=== PATIENT | male | born 1960 | race Caucasian/White ===

== ENCOUNTER 2016-08-20 17:21 | Inpatient (IN) | payer MEDICARE, MEDICAID ==
[2016-08-20] MEDS ORDERED: Sodium Chloride 0.9% 10 ML Syringe FLUSH PRN (18:11)
[2016-08-20] MEDS: Sodium Chloride 0.9% 1,000 ML IV SCH (18:57)
[2016-08-20] MEDS ORDERED: cefTRIAXone 1 GM in Sodium Chloride 0.9% 50 ML IV SCH ×2 (19:00→21:00)
[2016-08-20] MEDS ORDERED: Azithromycin 500 MG AdvVial IV ONE (19:56)
[2016-08-20] MEDS: Azithromycin 500 MG in Sodium Chloride 0.9% 250 ML IV SCH (20:09)
[2016-08-20] MEDS ORDERED: Cholestyramine/Sucrose Powder 4 GM Packet PO SCH (21:00)
[2016-08-20] MEDS: Albuterol 0.083% 2.5 MG/3 ML Neb Soln NEB SCH (21:39)
[2016-08-21] MEDS: Ibuprofen 800 MG Tab PO PRN (00:30)
[2016-08-21] MEDS: Sodium Chloride 0.9% 1,000 ML IV SCH ×2 (03:50→12:30)
[2016-08-21] MEDS: Albuterol 0.083% 2.5 MG/3 ML Neb Soln NEB SCH ×4 (07:31→20:09)
[2016-08-21] MEDS ORDERED: Citalopram 20 MG Tab PO SCH (09:00)
[2016-08-21] MEDS ORDERED: Olmesartan 20 MG Tab PO SCH (09:00)
[2016-08-21] MEDS ORDERED: prednisoLONE Acetate 1% Ophth Susp 5 ML Bottle EYEBOTH SCH (09:00)
--- NOTE | 2016-08-21 14:47 | PN ---
DATE SEEN: 08/21/2016 SUBJECTIVE: Seng is seen today for followup of his bibasilar pneumonia. Actually doing fairly well. His saturations have been stable on 2 L at 91-92% and he is tolerating his respiratory treatments quite well. He has had minimal nonproductive cough. His fever went to 99.2, but otherwise he has been stable. His appetite was good this morning. He denies any other complaints or concerns. OBJECTIVE: GENERAL: He appears to be comfortable, sitting in the chair, in no acute distress. VITAL SIGNS: Afebrile today at 97.0, blood pressure 117/79, pulse is 75 and regular, respirations are 20, and O2 saturation on 2 L is 93%. HEENT: Otherwise unchanged. There is no jugular venous distention. CHEST: Revealed bibasilar crackles, but the patient takes a poor breath. CARDIOVASCULAR: Revealed a normal S1 and S2 without murmur, rub, or gallop. ABDOMEN: Unremarkable except for some obesity and healed incisional scars. EXTREMITIES: Without clubbing or edema. LABORATORY DATA: Thus far, blood cultures show no growth. IMPRESSION: Bibasilar pneumonia with hypoxemia; history of [id number]-mufezuaq intellectual disability; hypertension, under good control; and history of anxiety. PLAN: At this point, no changes will be made. Continue ceftriaxone and azithromycin and await the results of his cultures. Continue the nebulizer treatments and we will follow from there. /[id number] [id number] /BELEM
[2016-08-21] MEDS: Citalopram 10 MG Tab PO SCH (17:46)
[2016-08-21] MEDS: Azithromycin 500 MG in Sodium Chloride 0.9% 250 ML IV SCH (18:06)
[2016-08-21] MEDS: Olmesartan 20 MG Tab PO SCH (20:09)
[2016-08-21] MEDS: cefTRIAXone 1 GM in Sodium Chloride 0.9% 50 ML IV SCH (20:18)
--- NOTE | 2016-08-21 23:58 | HP ---
ADMISSION DATE: 08/20/2016 CHIEF COMPLAINT: Increased cough, fever, and lethargy. HISTORY OF PRESENT ILLNESS: This patient is a 56-year-old male, who is supervised [facility] with history of moderate intellectual disabilities, intermittent fecal incontinence, generalized anxiety disorder and borderline hypertension, who was admitted after being seen in the clinic with the above chief complaint. The patient began feeling ill yesterday, they have noticed a cough and low-grade fever. He was seen in the walk-in clinic, they felt he had "illness that is going around" and discharged him home. Throughout the night his cough increased and his fever increased. He became more congested, lethargic, and he was brought to the clinic for evaluation. Chest x-ray shows significant bibasilar pneumonia right greater than left and his O2 saturations were on room air were 82 to 85%. Because of that the fact that he lives in his own apartment supervised by the [facility], they were concerned that he would not do well. The hospitalization was recommended. He was therefore admitted. They have noticed a cough, but it seems to be nonproductive. He has had a fever in the 99 to 100 range. No active chills have been noted. He has had no hemoptysis. Seng rarely says anything. He will nod his head yes and no to answer questions. He at this time denies pain. He has had no nausea or vomiting. There is no diarrhea. He denies chest pain at this time. He has had no increased leg pain or swelling. MEDICATIONS: Include; 1. Azithromycin, that apparently was started when he was at the walk-in clinic. He got 500 mg yesterday and took 250 mg today. 2. He also uses olmesartan 5 mg daily. 3. Questran 1 scoop in a glass of juice daily to every other day p.r.n. for loose stools. 4. Celexa 20 mg p.o. daily. 5. Ibuprofen 800 mg up to three times a day p.r.n. for pain. 6. Systane eye drops, one drop in both eyes four times a day. 7. Refresh eye drops, two drops in both eyes at bedtime. ALLERGIES: Benadryl cause an unknown reaction. SOCIAL HISTORY: He does not smoke, nor use alcohol. PAST MEDICAL HISTORY: Pertinent that, he has had a previous open cholecystectomy with incidental appendectomy in 2004. He had a right cataract extraction few years ago and has had a colonoscopy in 2015. He has severe valgus deformity of both knees with osteoarthritic changes. He has had hypertension for the last few years, but it has been well controlled on the above-mentioned medications. FAMILY HISTORY: Could not be obtained per patient. REVIEW OF SYSTEMS: Discussed. Other than that mentioned above, he denied any other complaints. PHYSICAL EXAMINATION: VITAL SIGNS: At this time, temperature to be 98.3, blood pressure 128/76, pulse is 97 and regular, respirations were 18, O2 saturation on room air was 84% and it went to 92% on 2 L. HEENT: Head was normocephalic and atraumatic. The patient has a dense corneal opacification on the left. Right pupil was round and reacted well to light and accommodation. Extraocular movements were intact and he has an intraocular lens on the right. TMs are both clear. Nasal passages were open without discharge. Pharynx and palate were remarkable. He has is very high-arched palate with a protruding lower lip. He has only three teeth in his mouth. No ulcerations or areas of breakdown were noted in the mouth. Mucous membranes are just mildly dry. NECK: Supple. There is no jugular venous distention. Thyroid was not enlarged. CHEST: Revealed bibasilar crackles with borderline tachypnea. No retractions. No chest wall tenderness. CARDIOVASCULAR: Revealed a normal S1 and S2 without murmur, rub, or gallop. ABDOMEN: Soft, somewhat obese with healed incisional scar in the right upper abdomen. There is no tenderness. No rebound or rigidity. Bowel sounds are normal. No bruits are noted. RECTAL: Not done. EXTREMITIES: Were without clubbing. He has no edema. Significant varus deformity of both knees was noted without effusion, erythema, or warmth. NEURO: Circulatory function in the feet appeared to be intact with excellent peripheral pulses. LABORATORY DATA: Chest x-ray as noted above. CBC revealed a hemoglobin of 12.1, hematocrit 36.1, white count of 4500. He has 72 segs, 16 lymphocytes, 10 monos. Sodium 137, potassium at 3.8, creatinine was 0.8, BUN of 15. Glucose was 109. Urinalysis was unremarkable. IMPRESSION: 1. Bibasilar pneumonia with hypoxemia. 2. Bbpl-fm-awdlabcs intellectual disability. 3. History of chronic anxiety. 4. History of hypertension. 5. Status post cholecystectomy with incidental appendectomy. PLAN: The patient will be admitted. Cultures were obtained of his blood. We will initiate ceftriaxone 1 g IV q.24 hours and azithromycin. He already got a dose of 500 yesterday, we will give him another 500 today and tomorrow and will watch closely. Respiratory therapy treatments will be initiated using albuterol. Supplemental oxygen will be continued and will follow from there. /[id number] WM/MODL
[2016-08-22] MEDS: Sodium Chloride 0.9% 1,000 ML IV SCH ×3 (07:04→23:55)
[2016-08-22] MEDS: Albuterol 0.083% 2.5 MG/3 ML Neb Soln NEB SCH ×4 (07:20→21:16)
--- NOTE | 2016-08-22 11:46 | PN ---
DATE SEEN: 08/22/2016 SUBJECTIVE: Seng is seen today for followup of his pneumonia. Actually, he continues to slowly improve. He has remained afebrile and his appetite seems to be getting better. He still requires oxygen to maintain his saturation greater than 92%. He has had minimal nonproductive cough and he really does not like to cough very much. He denies any abdominal pain or other concerns. He has had no other complaints. OBJECTIVE: VITAL SIGNS: He spiked a temp last night to 100.1, but this morning it is 97.6, his blood pressure was 141/87, pulse is 69 and regular, O2 saturation is 92% on 2 L, and his respirations are 16 and unlabored. HEENT: Unchanged. NECK: Supple. There is no jugular venous distention. He still has some crackles especially at the right base but also some on the left. CARDIOVASCULAR: Revealed a normal S1 and S2 without murmur, rub, or gallop. ABDOMEN: Soft, slightly obese, but nontender without organomegaly or masses. Healed incisional scar was noted. EXTREMITIES: Without clubbing. No edema. No ulcerations or areas of breakdown. IMPRESSION: Bibasilar pneumonia. PLAN: Finish out the azithromycin over 3 days and continue the ceftriaxone. Continue the nebulizer treatments and increase activity up and about as tolerated and decrease his IV rate. We will follow from there. /[id number] 1108 /JANICEL
[2016-08-22] MEDS: Sodium Chloride 0.9% 10 ML Syringe FLUSH PRN (16:00)
[2016-08-22] MEDS: Ibuprofen 800 MG Tab PO PRN (16:14)
[2016-08-22] MEDS: Citalopram 10 MG Tab PO SCH (17:56)
[2016-08-22] MEDS: cefTRIAXone 1 GM in Sodium Chloride 0.9% 50 ML IV SCH (20:52)
[2016-08-22] MEDS: Olmesartan 20 MG Tab PO SCH (21:16)
[2016-08-22] MEDS: Cholestyramine/Sucrose Powder 4 GM Packet PO SCH (21:16)
[2016-08-22] MEDS: Acetaminophen 325 MG Tab PO PRN (21:26)
[2016-08-23] MEDS: Albuterol 0.083% 2.5 MG/3 ML Neb Soln NEB SCH ×4 (07:27→20:53)
[2016-08-23] MEDS: Ibuprofen 800 MG Tab PO PRN (08:09)
[2016-08-23] MEDS: Sodium Chloride 0.9% 1,000 ML IV SCH ×2 (08:12→20:49)
[2016-08-23] MEDS ORDERED: Ibuprofen 800 MG Tab PO SCH (11:00)
--- NOTE | 2016-08-23 13:30 | PN ---
DATE SEEN: 08/23/2016 SUBJECTIVE: Seng Alvarado is a 56-year-old, male, admitted with complicated pneumonia. Please see Dr. Gallego's notes. Doing better. Fever seems to be subsiding. Cough improving, still requiring O2. Appears comfortable in terms of his well being. LABORATORY STUDIES: 08/23/2016, white count 5900, hemoglobin 11.9, hematocrit 35.1. Potassium fell from 3.8 to 3.3, will address accordingly. Staff, for at home, requested analgesics to be given on a regular basis. No followup chest x-rays have been performed till this time. OBJECTIVE: VITAL SIGNS: Temperature 37.4, pulse rate 72, blood pressure 135/87, respirations 20, and O2 sats 94% 3 L. GENERAL: Appears to be comfortable, nonverbal. NECK: Benign, thyroid small. CHEST: Decreased breath sounds, both lower lung bases. HEART: Regular with ectopy or murmur. ABDOMEN: Benign. ASSESSMENT: Bilateral pneumonia with persistent hypoxia. PLAN: We will continue with RT treatment, aggressive treatments, and intervention. We will recheck his potassium, add some potassium. Repeat a chest x-ray, and add ibuprofen on a routine basis. /[id number] 1126 /BELEM
[2016-08-23] MEDS: Ibuprofen 800 MG Tab PO SCH ×2 (14:50→21:23)
--- NOTE | 2016-08-23 15:06 | CR ---
INDICATION: Follow-up pneumonia. CHEST: PA and lateral views of the chest 08/22/2016 were compared with 2016 and 10/25/2013 [facility] examinations, revealing continued patchy infiltration in the left mid to lower lung field and at the right lung base with perhaps slightly increased consolidation in one area versus atelectatic changes at the right lung base. No other change or new acute process was suggested. Small bilateral pleural effusions are suggested, compatible with pleuritis. Dextroconvex scoliosis of the thoracic spine is noted with moderately severe hypertrophic degenerative changes in the upper middle through lower thoracic spine. The heart appears to be at the upper limits of normal in size or slightly enlarged. A degree of obstructive airway disease may be present with slightly hyperaerated appearance. IMPRESSION: Findings remain compatible with bibasilar pneumonia and pleuritis, with left mid lung field pneumonia also suggested. MTDD
[2016-08-23] MEDS: Citalopram 10 MG Tab PO SCH (17:31)
[2016-08-23] MEDS: Acetaminophen 325 MG Tab PO PRN (17:31)
[2016-08-23] MEDS: Olmesartan 20 MG Tab PO SCH (20:51)
[2016-08-23] MEDS: Potassium Chloride 10 MEQ Tab.ER PO SCH (20:53)
[2016-08-23] MEDS: cefTRIAXone 1 GM in Sodium Chloride 0.9% 50 ML IV SCH (20:56)
[2016-08-24] MEDS: Ibuprofen 800 MG Tab PO SCH ×3 (05:52→22:05)
[2016-08-24] MEDS: Albuterol 0.083% 2.5 MG/3 ML Neb Soln NEB SCH ×4 (07:40→20:26)
[2016-08-24] MEDS: Potassium Chloride 10 MEQ Tab.ER PO SCH ×2 (08:43→20:26)
[2016-08-24] MEDS: Levofloxacin/Dextrose 5%-Water 750 MG in Premix Bag 1 BAG IV SCH (09:30)
--- NOTE | 2016-08-24 10:13 | PN ---
DATE SEEN: 08/24/2016 SUBJECTIVE: Seng Alvarado is a 56-year-old male, admitted with bibasilar pneumonia. Clinical response has been subdued. Fever appears to be improving, oxygen levels are not satisfactory high 80s on 2 L, are not symptomatic. Fever appears to be abating, but re-radiographs revealed evidence of a persistent bilateral pneumonia increasing changes. Has been only on ceftriaxone. PHYSICAL EXAMINATION: GENERAL: Appears to be comfortable. CHEST: Decreased breath sounds. Bone both right lower and left lung dahl. HEART: Regular without ectopy or murmur. ABDOMEN: Benign. ASSESSMENT: Progressive pneumonia. PLAN: We will add azithromycin, levofloxacin, and 2 g of ceftriaxone. Complementary care and well being, continue with supplemental O2. /[id number] [id number] YULIANA/BELEM
[2016-08-24] MEDS: Azithromycin 500 MG in Sodium Chloride 0.9% 250 ML IV SCH (11:15)
[2016-08-24] MEDS: cefTRIAXone 2 GM in Sodium Chloride 0.9% 100 ML IV SCH (13:02)
[2016-08-24] MEDS: Citalopram 10 MG Tab PO SCH (18:50)
[2016-08-24] MEDS: Olmesartan 20 MG Tab PO SCH (20:21)
[2016-08-24] MEDS: Cholestyramine/Sucrose Powder 4 GM Packet PO SCH (20:26)
[2016-08-25] MEDS: Acetaminophen 325 MG Tab PO PRN (04:04)
[2016-08-25] MEDS: Ibuprofen 800 MG Tab PO SCH ×3 (05:04→21:49)
[2016-08-25] MEDS: Levofloxacin/Dextrose 5%-Water 750 MG in Premix Bag 1 BAG IV SCH (08:06)
[2016-08-25] MEDS: Potassium Chloride 10 MEQ Tab.ER PO SCH ×2 (08:09→21:51)
[2016-08-25] MEDS: Albuterol 0.083% 2.5 MG/3 ML Neb Soln NEB SCH ×4 (08:37→21:50)
[2016-08-25] MEDS: Azithromycin 500 MG in Sodium Chloride 0.9% 250 ML IV SCH (09:44)
[2016-08-25] MEDS ORDERED: Furosemide 40 MG/4 ML VIAL IVPUSH ONE (10:16)
[2016-08-25] MEDS: Piperacillin/Tazobactam 3.375 GM in Sodium Chloride 0.9% 50 ML IV SCH ×2 (10:49→16:35)
[2016-08-25] MEDS: Sodium Chloride 0.9% 10 ML Syringe FLUSH PRN ×2 (10:56→21:59)
--- NOTE | 2016-08-25 11:20 | PN ---
DATE SEEN: 08/25/2016 SUBJECTIVE: Seng Alvarado is a 56-year-old male, admitted with complicated pneumonia. Response has been less than satisfactory. He was admitted initially on a single antibiotic therapy. There has been an addition now of levofloxacin 750 mg IV q.24 hours, Rocephin 2 g IV, and azithromycin 500 mg IV q.24 hours. O2 sats on oxygen 92, with activity drops in the mid 80s. Radiographs revealed stability, maybe slight progression. No history of congestive heart failure. He has been in good spirits otherwise. Nonverbal. When asked if he has pain, suggestion thereof. OBJECTIVE: VITAL SIGNS: 37.2, 37.3, 147/94, respirations 20, 91% on 2 L, 92% on 3 L. GENERAL: Nonverbal. NECK: Benign. Thyroid small. CHEST: Does not take good deep inspiratory efforts or expiratory efforts. Distant heart sounds. ABDOMEN: Benign. ASSESSMENT: Pneumonia, persisting. PLAN: We will continue with IV 3-drug antibiotic therapy, consider other aspiration-related pneumonia antibiotics, under consideration. We will add some IV steroids, one dose of IV Lasix. Complementary care and well being. /[id number] 1104 /BELEM
[2016-08-25] MEDS: methylPREDNISolone Sodium Succinate 125 MG/2 ML SDV IVPUSH SCH ×2 (11:24→21:59)
[2016-08-25] MEDS: cefTRIAXone 2 GM in Sodium Chloride 0.9% 100 ML IV SCH (11:25)
[2016-08-25] MEDS: Citalopram 10 MG Tab PO SCH (17:39)
[2016-08-25] MEDS: Olmesartan 20 MG Tab PO SCH (21:50)
[2016-08-25] MEDS: Cholestyramine/Sucrose Powder 4 GM Packet PO SCH (21:50)
[2016-08-26] MEDS: Piperacillin/Tazobactam 3.375 GM in Sodium Chloride 0.9% 50 ML IV SCH ×5 (00:03→22:16)
[2016-08-26] MEDS: Sodium Chloride 0.9% 10 ML Syringe FLUSH PRN ×4 (00:03→18:53)
[2016-08-26] MEDS: methylPREDNISolone Sodium Succinate 125 MG/2 ML SDV IVPUSH SCH ×3 (05:17→20:04)
[2016-08-26] MEDS: Ibuprofen 800 MG Tab PO SCH ×3 (06:07→22:14)
[2016-08-26] MEDS: Albuterol 0.083% 2.5 MG/3 ML Neb Soln NEB SCH ×4 (07:05→22:15)
[2016-08-26] MEDS: Levofloxacin/Dextrose 5%-Water 750 MG in Premix Bag 1 BAG IV SCH (09:20)
[2016-08-26] MEDS: Potassium Chloride 10 MEQ Tab.ER PO SCH ×2 (09:21→20:05)
[2016-08-26] MEDS ORDERED: Sodium Chloride 0.9% 250 ML IV SCH (09:30)
[2016-08-26] MEDS: Acetaminophen 325 MG Tab PO PRN (09:39)
--- NOTE | 2016-08-26 10:55 | PN ---
DATE SEEN: 08/26/2016 SUBJECTIVE: Seng Alvarado is a 56-year-old male, admitted with bilateral pneumonia. Radiographs appear to be stabilizing. Three-drug antibiotic therapy in place including levofloxacin, Zosyn, ceftriaxone, and intravenous corticosteroids. He appears to be turning a better course. Fever is abating, comfortable. O2 sats 92% on 2 L. He has been as high as 4 L. Followup chest x-ray, planned for today. OBJECTIVE: VITAL SIGNS: Stable. 37.5, pulse of 106, 141/89, 92% on 2 L. GENERAL: As always, does not appear uncomfortable. Speech was very limited. CHEST: Inadequate respiratory effort on his part, but nothing that seemed to be focally changed. ASSESSMENT: 1. Bibasilar pneumonia. 2. Hypoxia secondary to above. PLAN: We will obtain echocardiogram of the heart, just for peace of mind, for cardiac purposes. Continue antibiotics therapy, IV Solu-Medrol, and three-drug antibiotic therapy. /[id number] /BELEM
[2016-08-26] MEDS: cefTRIAXone 2 GM in Sodium Chloride 0.9% 100 ML IV SCH (11:50)
--- NOTE | 2016-08-26 13:55 | CR ---
INDICATION: Follow-up pneumonia. CHEST: AP and lateral views of the chest 08/26/2016 were compared with 2016 and 08/20/2016. There appear to be increasing bibasilar pleuroparenchymal changes, remaining compatible with pneumonia and pleuritis and possibly atelectasis. There may also be onset of pulmonary vascular congestion with slightly prominent upper lung field pulmonary vasculature. If pulmonary emboli are a concern in this patient on a clinical basis, additional workup may be warranted. Report faxed to Dr. Gallego on 08/26/2016 at 1355 hours. MTDD
[2016-08-26] MEDS: Citalopram 10 MG Tab PO SCH (18:01)
[2016-08-26] MEDS: Olmesartan 20 MG Tab PO SCH (20:04)
[2016-08-27] MEDS: Acetaminophen 325 MG Tab PO PRN (00:30)
[2016-08-27] MEDS: Piperacillin/Tazobactam 3.375 GM in Sodium Chloride 0.9% 50 ML IV SCH ×2 (05:00→11:50)
[2016-08-27] MEDS: Ibuprofen 800 MG Tab PO SCH (05:00)
[2016-08-27] MEDS: methylPREDNISolone Sodium Succinate 125 MG/2 ML SDV IVPUSH SCH (05:00)
[2016-08-27] MEDS: Albuterol 0.083% 2.5 MG/3 ML Neb Soln NEB SCH ×2 (07:03→11:50)
[2016-08-27] MEDS: EPINEPHrine 1:10,000 1 MG/10 ML Syringe IVPUSH PRN ×3 (08:14→08:46)
[2016-08-27] MEDS ORDERED: Sodium Chloride 0.9% 1,000 ML IV SCH (08:55)
[2016-08-27] MEDS ORDERED: Atropine 0.1 MG/ML 10 ML Syringe IVPUSH PRN (09:13)
[2016-08-27] MEDS ORDERED: SODIUM CHLORIDE 0.9% IV ONE (09:26)
[2016-08-27] MEDS ORDERED: METOPROLOL TARTRATE IV ONE (09:26)
[2016-08-27] MEDS ORDERED: Metoprolol Tartrate 5 MG/5 ML SDV ONE (09:27)
[2016-08-27] MEDS ORDERED: Metoprolol Tartrate 5 MG/5 ML SDV IVPUSH ONE (09:35)
[2016-08-27 10:01] VITALS: BP 181/116
--- NOTE | 2016-08-27 10:39 | CR ---
INDICATION: Endotracheal tube placement. CHEST: A single AP portable supine view of the chest was obtained 08/27/2016 and compared with 08/26/2016 and 08/23/2016, revealing an appearance of increased infiltration in the mid to upper lung dahl, especially on the right. Continued infiltration at the lung bases is seen. What appears to be an abnormal airspace - bullus is noted at the right lung base. ET tube is noted in good position with the ET tube tip 39 mm from the emilie. Report was called to Dr. Wright at 0955 hours, 08/27/2016. MTDD
--- NOTE | 2016-08-27 11:24 | PCM.PRNOTE ---
- Free Text/Narrative Note: Called to ICU to intubate patient after ETT was dislodged. Pt unresponsive. Being mask ventilated. Inubated with Glidescope. Cords clear. 8.0 fr. ETT. bilat breath sounds. Secured at 23cm teeth. CXR to be done. Vent settings Fio2 100%-[id number] 5. Dr. Wright to follow per RN.
[2016-08-27] MEDS: Potassium Chloride 10 MEQ Tab.ER PO SCH (11:34)
[2016-08-27] MEDS: Levofloxacin/Dextrose 5%-Water 750 MG in Premix Bag 1 BAG IV SCH (11:35)
--- NOTE | 2016-08-27 13:42 | DISCH ---
DISCHARGE DATE: 08/27/2016 ADMITTING DIAGNOSIS: Bilateral pneumonia with respiratory distress, resultant cardiopulmonary collapse, and transfer. HOSPITAL COURSE: Seng Alvarado is a 56-year-old male, admitted with pneumonia, fever, and hypoxia. During his hospital stay, he was given triple-antibiotic therapy. Fever abated. Oxygen levels improved. Need for oxygen declined. Radiographs remained stabilized as were the laboratory studies. He had a cardiopulmonary arrest, unwitnessed, was found on the floor. CPR was intervened, successful, the patient intubated, stabilized on ventilator. He was transferred to [facility] for interval care and management of intubation and ventilatory care. SURGICAL PROCEDURES: None. CONSULTATIONS: None. /[id number] [id number] YULIANA/BELEM
--- NOTE | 2016-08-27 15:03 | PN ---
DATE SEEN: 08/27/2016 SUBJECTIVE: Seng Alvarado is a 56-year-old male, who was an inpatient hospital patient for complicated pneumonia. He was seen by RT at 0715 hours. Respiratory treatment was given, was found on the floor incontinent of stool and urine at about 0815 hours. Unwitnessed arrest. He underwent CPR for about 15 minutes of resuscitation, shocked x2, given appropriate medications, and maintained blood pressure, returned blood pressure. Intubation was successful. He had a second episode of bradycardia, which required a brief intervention. Please see code status report. At this time, he is fully intubated, respiratory settings in place, consultation with Dr. Joiner, [facility] Interventional Hospitalist, and will be transferred accordingly. Blood gases have improved from a pH of 7.04 to 7.3, likely a venous stick, but nonetheless, pH was comfortable. [place] [facility] agreed to accept the patient in transfer. /[id number] 1212 YULIANA/BELEM
--- NOTE | 2016-08-27 15:19 | PN ---
DATE SEEN: 08/27/2016 CODE 100 NOTE PROBLEM: Cardiorespiratory arrest. HISTORY OF PRESENT ILLNESS: Seng is a 56-year-old male, who is on a medical- surgical floor here at [facility], being treated for pneumonia. He was managed with 2 L of oxygen per nasal cannula, in addition to the antibiotics he was receiving. Respiratory therapy had treated him for some bronchospasm at about 0700 hours this morning, and he seemed to be doing fairly well at that time. Some time just before 0800 hours, he was found lying unresponsive on the floor in his room. Shelton caesar was called, and I arrived at the scene to find him supine on the floor, pulseless, and not breathing. Initially, he was noted on exam to have no audible pulse, no spontaneous respirations. His right pupil was fixed and dilated. His left pupil was obscured by dense cataract and some scarring over the eye. He had no spontaneous movement. The patient was immediately placed on a filler shredder, which revealed either asystole or fine VFib; it was difficult to tell. Anesthesia also responded to the code, and they intubated the patient with an endotracheal tube and began assisted respirations. CPR was performed by nursing immediately upon arrival. A peripheral IV was in place from prior to his code, which became useful for administering resuscitation medications. Initially, the patient was given a milligram of epinephrine IV followed by an attempt at defibrillation with 200 joules. The defibrillation attempt caused no change in his ultimate rhythm or condition. Following this, CPR was resumed, and the patient received a milligram of atropine IV. With the atropine, he began to have a few isolated QRS complexes, which were not conclusively palpable on exam. CPR was continued, and once we had reached at least 5 minutes out from his initial epinephrine, another 1 mg of epinephrine was given IV. After this dose of epinephrine and with the continued assisted respirations and CPR, he developed consistent QRS complexes. At this time, he had a palpable carotid pulse. Blood pressure was then measured, which showed blood pressure in the 110 to 120 systolic range. His heart rate was rapid and somewhat regular after the second dose of epinephrine. At this point, CPR was discontinued, although assisted respirations were continued, because he did not yet have any spontaneous respirations. At this stage, the patient was moved to a bed. Hernandez catheter was placed. Troponin and arterial blood gases were ordered. Also, a chest x-ray was ordered for tube placement. Note that it was felt during his resuscitation phase that bagging was more difficult than anticipated, and his breath sounds were somewhat diminished bilaterally. Breath sounds did, however, seem to be relatively equal from left to right. IMPRESSION: Cardiorespiratory arrest, etiology unclear at this point, but the patient has been resuscitated, although he is not neurologically fully intact. PLAN: Continue assisted respirations as needed. Laboratory studies pending. The patient will be moved from his current medical bed to an Intensive Care Unit bed. Dr. Wright will be taking over in his care, as he is the hospitalist at this time. /[id number] [id number] /BELEM
== END 2016-08-27 11:28 | DRG 208 ==
LOC: FB.MS 17:21 → OBSVTOIN 18:11 → FB.ICU 08-27 08:20
PROVIDERS: ADMIT Family Medicine; ATTEND Family Medicine
PROC: 5A12012 Performance of Cardiac Output, Single, Manual (ICD-10-PCS; principal; 2016-08-27)
PROC: 5A1935Z Respiratory Ventilation, Less than 24 Consecutive Hours (ICD-10-PCS; 2016-08-27)
PROC: 0BH17EZ Insertion of Endotracheal Airway into Trachea, Via Natural or Artificial Opening (ICD-10-PCS; 2016-08-27)
PROC: [UNRECOGNIZED PROCEDURE] (2016-08-27)
PROC: 0B21XEZ Change Endotracheal Airway in Trachea, External Approach (ICD-10-PCS; 2016-08-27)
DX: J18.9 Pneumonia, unspecified organism (principal); I46.9 Cardiac arrest, cause unspecified; R09.02 Hypoxemia; I10 Essential (primary) hypertension; F70 Mild intellectual disabilities; F41.1 Generalized anxiety disorder; M21.062 Valgus deformity, not elsewhere classified, left knee; M21.061 Valgus deformity, not elsewhere classified, right knee; Z88.8 Allergy status to other drugs, medicaments and biological substances; E87.6 Hypokalemia; R15.9 Full incontinence of feces; R32 Unspecified urinary incontinence
CPT/HCPCS: 36415; 36600; 71010; 71020; 80048; 80053; 81003; 82803; 84484; 85025; 85027; 87040; 93005; 94002; 94640-76; 94664; A9270-GY; J0171; J0456; J0461; J0696; J1940; J1956; J2543; J2930; J3490; J7030; J7040; J7050